=== PATIENT | male | born 1965 | race Two or more races ===

== ENCOUNTER 2018-06-27 08:39 | Inpatient (IN) | payer MEDICAID ==
[~2018-06-27] VITALS: Ht 165.1 cm; Wt 60.6 kg
[2018-06-27 08:44] VITALS: Ht 165.1 cm; Wt 60.6 kg
[2018-06-27 09:48] LABS: BASOPHIL % 0.7 % (0-2)
[2018-06-27 09:49] LABS: UA SPECIFIC GRAVITY 1.025 (1.005-1.035); microscopic required? YES; urine erythrocyte NEGATIVE (NEGATIVE)
[2018-06-27 09:50] LABS: PLATELET COUNT 115 x10^3mcL (130-400); RED CELL DISTRIBUTION WIDTH 15.4 % (11.5-14.5)
[2018-06-27 10:54] LABS: CARBON DIOXIDE 28.1 mmol/L (21-32); CHLORIDE SERUM 104 mmol/L (98-107); CREATININE SERUM 0.8 mg/dL (0.7-1.3); GFR1 > 60 mL/min; GLUCOSE SERUM 182 mg/dL (74-106); POTASSIUM SERUM 4.7 mmol/L (3.5-5.1); SODIUM SERUM 139 mmol/L (136-145)
[2018-06-27 10:58] LABS: ALKALINE PHOSPHATASE 441 U/L (46-116); ALT/SGPT 110 U/L (16-63); AMYLASE 49 U/L (25-115); AST/SGOT 108 U/L (15-37); BILIRUBIN TOTAL 0.7 mg/dL (0.20-1.00); CHOLESTEROL 169 mg/dL (<200); HDL CHOLESTEROL 59 mg/dL (40-60); LIPASE 162 IU/L (73-393); TOTAL PROTEIN, SERUM 7.2 g/dL (6.4-8.2)
[2018-06-27 11:02] LABS: ALBUMIN 2.9 g/dL (3.4-5.0)
[2018-06-27] MEDS ORDERED: GLUCOTROL10 MG PO (12:30)
[2018-06-27] MEDS ORDERED: METFORMIN HCL1000 MG PO (12:30)
[2018-06-27] MEDS ORDERED: BAYER ASPIRIN R81 MG PO (12:31)
[2018-06-27 13:35] VITALS: BP 139/86
[2018-06-27 15:43] LABS: CHOLESTEROL/HDL RATIO 2.8
[2018-06-27 15:50] LABS: T3 TOTAL 1.43 ng/mL
[2018-06-27 15:51] LABS: FREE T4 1.32 ng/dL (0.76-1.46); FREE THYROXINE INDEX 3.5 ug/dL (1.4-4.5); T4(THYROXINE) 10.5 ug/dL (4.7-13.3)
[2018-06-27 16:02] LABS: AMPHETAMINE QUAL UR NONE DETECTED (See below)
[2018-06-27 16:43] VITALS: BP 129/76
[2018-06-27 21:19] VITALS: BP 110/61
[2018-06-28 05:50] VITALS: BP 133/77
[2018-06-28 10:05] VITALS: BP 127/69
[2018-06-28 14:02] VITALS: BP 132/72
[2018-06-28 17:19] VITALS: BP 142/82
[2018-06-28 21:27] VITALS: BP 148/84
[2018-06-29 05:03] VITALS: BP 139/80
[2018-06-29 07:26] LABS: BASOPHIL % 0.8 % (0-2)
[2018-06-29 07:28] LABS: PLATELET COUNT 107 x10^3mcL (130-400); RED CELL DISTRIBUTION WIDTH 14.9 % (11.5-14.5)
[2018-06-29 07:44] LABS: CALCIUM 8.3 mg/dL (8.5-10.1); CARBON DIOXIDE 25.9 mmol/L (21-32); CHLORIDE SERUM 106 mmol/L (98-107); CREATININE SERUM 0.7 mg/dL (0.7-1.3); GFR1 > 60 mL/min; GLUCOSE SERUM 105 mg/dL (74-106); MAGNESIUM 1.7 mg/dL (1.8-2.4); PHOSPHOROUS 3.1 mg/dL (2.5-4.9); POTASSIUM SERUM 4.1 mmol/L (3.5-5.1); SODIUM SERUM 139 mmol/L (136-145)
[2018-06-29 08:26] VITALS: BP 143/83
[2018-06-29 17:42] VITALS: BP 152/87
[2018-06-29 21:13] VITALS: BP 126/50
[2018-06-30 05:00] VITALS: BP 130/86
[2018-06-30 06:23] LABS: BASOPHIL % 0.3 % (0-2)
[2018-06-30 06:37] LABS: CALCIUM 8.4 mg/dL (8.5-10.1); CARBON DIOXIDE 25.8 mmol/L (21-32); CHLORIDE SERUM 106 mmol/L (98-107); CREATININE SERUM 0.9 mg/dL (0.7-1.3); GFR1 > 60 mL/min; GLUCOSE SERUM 159 mg/dL (74-106); MAGNESIUM 1.7 mg/dL (1.8-2.4); POTASSIUM SERUM 5.1 mmol/L (3.5-5.1); SODIUM SERUM 137 mmol/L (136-145)
[2018-06-30 06:49] LABS: PLATELET COUNT 103 x10^3mcL (130-400); RED CELL DISTRIBUTION WIDTH 14.8 % (11.5-14.5)
[2018-06-30 08:45] VITALS: BP 122/78
[2018-06-30] MEDS ORDERED: BIA500 PO (11:57)
[2018-06-30] MEDS ORDERED: PRI20 PO (11:57)
[2018-06-30 12:23] VITALS: BP 122/78
== END 2018-06-30 14:55 | disposition home or self-care (01) | DRG 240 ==
LOC: ED 08:39 → DU 12:49
PROVIDERS: Emergency Medicine; Family Medicine; Internal Medicine Gastroenterology
PROC: 0FB13ZX Excision of Right Lobe Liver, Percutaneous Approach, Diagnostic (ICD-10-PCS; principal; 2018-06-27)
PROC: 0DB48ZX Excision of Esophagogastric Junction, Via Natural or Artificial Opening Endoscopic, Diagnostic (ICD-10-PCS; 2018-06-29 09:30)
DX: C16.0 Malignant neoplasm of cardia (principal); N17.0 Acute kidney failure with tubular necrosis; A04.8 Other specified bacterial intestinal infections; C25.1 Malignant neoplasm of body of pancreas; E44.0 Moderate protein-calorie malnutrition; K26.9 Duodenal ulcer, unspecified as acute or chronic, without hemorrhage or perforation; C78.7 Secondary malignant neoplasm of liver and intrahepatic bile duct; E11.65 Type 2 diabetes mellitus with hyperglycemia; E83.42 Hypomagnesemia; E83.51 Hypocalcemia; K31.7 Polyp of stomach and duodenum; K29.70 Gastritis, unspecified, without bleeding; B96.81 Helicobacter pylori [H. pylori] as the cause of diseases classified elsewhere; R80.9 Proteinuria, unspecified; F17.210 Nicotine dependence, cigarettes, uncomplicated; Z79.82 Long term (current) use of aspirin; Z79.84 Long term (current) use of oral hypoglycemic drugs; Z68.23 Body mass index [BMI] 23.0-23.9, adult
CPT/HCPCS: 43235; 82962; 84439; 88344; J1200; J1610; J1885; J2001; J2250; J2310; J2405; J3010; J3490; J7030; Q0092; Q9967